=== PATIENT | male | born 1990 | race American Indian/Alaskan Native ===

== ENCOUNTER 2016-08-07 07:39 | Emergency (ER) | payer OTHER ==
[2016-08-07] MEDS ORDERED: NACL 0.9% 500 ML 500 ML IV ONE (07:53)
[2016-08-07 08:27] LABS: Hemoglobin 12.8 gm/dl (11.8-15.2); Mean Corpuscular HGB Conc 32 % (32-34); Mean Corpuscular Hemoglobin 28 pg (28-32); Mean Corpuscular Volume 88 fl (84-94); Platelet Count 224 K/mm3 (140-440); Red Blood Count 4.58 M/mm3 (3.65-5.03); Red Cell Distribution Width 14.5 % (13.2-15.2); White Blood Count 5.3 K/mm3 (4.5-11.0)
[2016-08-07 08:37] LABS: INR 1.14 (0.87-1.13)
[2016-08-07 08:47] LABS: Alanine Aminotransferase 6 units/L (7-56); Albumin 3.4 g/dL (3.9-5); Albumin/Globulin Ratio 0.5 %; Alkaline Phosphatase 72 units/L (35-129); Anion Gap 13 mmol/L; Blood Urea Nitrogen 10 mg/dL (9-20); Calcium 8.9 mg/dL (8.4-10.2); Carbon Dioxide 28 mmol/L (22-30); Chloride 96.7 mmol/L (98-107); Glucose 75 mg/dL (75-100); Potassium 3.4 mmol/L (3.6-5.0); Sodium 134 mmol/L (137-145); Total Protein 9.8 g/dL (6.3-8.2)
[2016-08-07] MEDS ORDERED: NACL 0.9% 1000 ML 1,000 ML IV ONE (08:54)
--- NOTE | 2016-08-07 09:38 | Cat Scan Report ---
CT NECK WITH CONTRAST: HISTORY: Neck swelling. TECHNIQUE: Helical CT following IV contrast. Sagittal and coronal reformatted images. FINDINGS: There is moderate submental soft tissue swelling. No defined abscess, foreign body or soft tissue gas is appreciated. The parotid and submandibular glands are normal. The carotid sheaths are intact. There is no evidence of adenopathy within the neck. The thyroid gland is normal. The glottic structures are normal. The airway is patent. Strap musculature is unremarkable. Hyoid bone and thyroid cartilage are intact. Mild chronic left maxillary sinusitis is noted. IMPRESSION: Submental soft tissue swelling most consistent with cellulitis. No abscess identified.
[2016-08-07] MEDS ORDERED: VANCOMYCIN/NS 1 GM/250 ML 1 GM/250 ML BAG IV ONE (10:00)
[2016-08-07 10:01] LABS: Basophils % (Manual) 0 % (0.0-1.8); Blastocytes % (Manual) 0 %
[2016-08-07 10:02] LABS: Diff Status Complete; RBC Morphology Normal
--- NOTE | 2016-08-07 10:46 | Emergency Department Report ---
- General Chief complaint: Neck Pain/Injury Stated complaint: SWOLLEN NECK Time Seen by Provider: 08/07/16 08:32 Source: patient Mode of arrival: Ambulatory Limitations: No Limitations - History of Present Illness MD complaint: rash (erythema under chin concern for ingrown hair) -: Gradual, days(s) Location: face Severity: mild Severity scale (0 -10): 1 Quality: aching Consistency: constant Improves with: none Worsens with: none Context: other (concerned ingrown hair after shaving) Associated symptoms: denies other symptoms - Related Data Previous Rx's Medication Instructions Recorded Last Taken Type Ciprofloxacin HCl [Ciprofloxacin 500 mg PO BID #14 tablet 02/11/15 Unknown Rx TAB] Famotidine [Pepcid] 20 mg PO DAILY #30 tablet 02/11/15 Unknown Rx Hyoscyamine Subl [Levsin Sl 0.125 0.125 mg SL Q6HR PRN #20 tab 02/11/15 Unknown Rx TAB] Metoclopramide [Reglan] 10 mg PO TID PRN #20 tab 02/11/15 Unknown Rx Sulfamethoxazole/Trimethoprim 1 each PO BID #14 tablet 08/07/16 Unknown Rx [Bactrim DS TAB] Allergies Allergy/AdvReac Type Severity Reaction Status Date / Time No Known Allergies Allergy Unverified 02/11/15 02:05 Abscess Boil HPI - HPI Chief Complaint: Neck Pain/Injury Stated Complaint: SWOLLEN NECK Time Seen by Provider: 08/07/16 08:32 Home Medications: Previous Rx's Medication Instructions Recorded Last Taken Type Ciprofloxacin HCl [Ciprofloxacin 500 mg PO BID #14 tablet 02/11/15 Unknown Rx TAB] Famotidine [Pepcid] 20 mg PO DAILY #30 tablet 02/11/15 Unknown Rx Hyoscyamine Subl [Levsin Sl 0.125 0.125 mg SL Q6HR PRN #20 tab 02/11/15 Unknown Rx TAB] Metoclopramide [Reglan] 10 mg PO TID PRN #20 tab 02/11/15 Unknown Rx Sulfamethoxazole/Trimethoprim 1 each PO BID #14 tablet 08/07/16 Unknown Rx [Bactrim DS TAB] Allergies/Adverse Reactions: Allergies Allergy/AdvReac Type Severity Reaction Status Date / Time No Known Allergies Allergy Unverified 02/11/15 02:05 ED Review of Systems ROS: Stated complaint: SWOLLEN NECK Other details as noted in HPI Other: GENERAL: No weight change, fatigue, weakness, fever, chills, or night sweats SKIN: No changes in skin or hair, no itching, no jaundice, skin rash under chin HEAD: No trauma, headache, or visual changes EYES: No blurriness, tearing, itching, acute visual loss, conjunctival discoloration, or scleral icterus EARS: No hearing loss, tinnitus, vertigo, or earache NOSE: No rhinorrhea, stuffiness, sneezing, itching, or epistaxis MOUTH: No bleeding gums, hoarseness, sore throat, or swelling CARDIAC: No new murmur, chest pain, palpitations, dyspnea on exertion, orthopnea , PND, or edema RESPIRATORY: No shortness of breath, wheeze, cough, sputum production, hemoptysis, pneumonia, asthma, bronchitis, or emphysema GI: No change in appetite, nausea, vomiting, dysphagia, change in bowel frequency, diarrhea, constipation, bleeding, hematemesis, melena, hematochezia, or abdominal pain URINARY: No frequency, urgency, polyuria, dysuria, hematuria, or incontinence MUSCULOSKELETAL: No muscle weakness, joint stiffness, decrease in range of motion, redness, swelling, tenderness NEUROLOGIC: No loss of sensation, numbness, tingling, tremors, weakness, paralysis, seizures HEMATOLOGIC: No anemia, easy bruising, bleeding, petechiae, or purpura. Reports last CD4 count approximately 550 ENDOCRINE: No hot or cold intolerance, sweating, polyuria, polydipsia or, polyphagia no thyroid problems PSYCHIATRIC: No change in mood, no anxiety, no depression ED Past Medical Hx - Past Medical History Previous Medical History?: Yes Hx HIV: Yes Additional medical history: sinus infecton - Surgical History Past Surgical History?: No - Social History Smoking Status: Current Every Day Smoker Substance Use Type: Prescribed - Medications Home Medications: Home Medications Medication Instructions Recorded Confirmed Last Taken Type Ciprofloxacin HCl [Ciprofloxacin 500 mg PO BID #14 tablet 02/11/15 Unknown Rx TAB] Famotidine [Pepcid] 20 mg PO DAILY #30 tablet 02/11/15 Unknown Rx Hyoscyamine Subl [Levsin Sl 0.125 0.125 mg SL Q6HR PRN #20 tab 02/11/15 Unknown Rx TAB] Metoclopramide [Reglan] 10 mg PO TID PRN #20 tab 02/11/15 Unknown Rx Sulfamethoxazole/Trimethoprim 1 each PO BID #14 tablet 08/07/16 Unknown Rx [Bactrim DS TAB] ED Physical Exam - General Limitations: No Limitations - Other Other exam information: GENERAL: Patient in no acute distress HEAD: Normocephalic, atraumatic EYES: PERRLA, EOM intact, no scleral icterus, no papilledema, no conjunctival hemorrhage, visual rod and acuity wnl, NOSE: No tenderness, discharge, sinus tenderness MOUTH: No erythema, bleeding, exudate HEART: Regular rate and rhythm, no murmur, S1-S2 are auscultated, pulses are symmetric LUNGS: No wheezing, rales, rhonchi, bilateral breath sounds ABDOMEN: Normal bowel sounds, no tenderness, no rebound, no guarding, no masses , no CVA tenderness MUSCULOSKELETAL: Normal joint range of motion, no redness, no swelling, no tenderness NEUROLOGIC: GCS 15, Alert and Oriented x3, Cranial nerves intact, normal sensation, normal strength, normal gait, no cerebellar deficit PSYCHIATRIC: No homicidal or suicidal ideation, no anxiety, no depression, no hallucinations SKIN: Skin is warm and dry, mild erythema blanching under chin, no fluctuating fluid collection ED Course Vital Signs 08/07/16 08/07/16 08/07/16 07:44 08:43 08:50 Temperature 98.3 F Pulse Rate 111 H Respiratory 20 Rate Blood Pressure 122/84 126/90 O2 Sat by Pulse 100 94 99 Oximetry 08/07/16 08/07/16 08/07/16 09:00 09:48 09:50 Temperature Pulse Rate Respiratory Rate Blood Pressure 123/92 123/92 123/92 O2 Sat by Pulse 97 100 100 Oximetry 08/07/16 08/07/16 08/07/16 10:00 10:10 10:20 Temperature Pulse Rate Respiratory Rate Blood Pressure 116/86 116/86 118/83 O2 Sat by Pulse 97 100 99 Oximetry 08/07/16 08/07/16 08/07/16 10:30 10:40 10:52 Temperature Pulse Rate Respiratory Rate Blood Pressure 127/85 127/85 137/89 O2 Sat by Pulse 100 97 100 Oximetry 08/07/16 08/07/16 08/07/16 11:00 11:10 11:20 Temperature Pulse Rate Respiratory Rate Blood Pressure 119/84 119/84 124/77 O2 Sat by Pulse 100 97 100 Oximetry 08/07/16 11:32 Temperature Pulse Rate Respiratory 16 Rate Blood Pressure O2 Sat by Pulse 98 Oximetry ED Medical Decision Making - Lab Data Result diagrams: 08/07/16 08:03 08/07/16 08:03 - Radiology Data Radiology results: report reviewed - Medical Decision Making Patient comfortable. Updated with results. Plan discharge with outpatient follow-up. Patient agrees with plan and will return if symptoms worsen. Critical care attestation.: If time is entered above; I have spent that time in minutes in the direct care of this critically ill patient, excluding procedure time. ED Disposition Clinical Impression: Cellulitis Qualifiers: Site of cellulitis: neck Qualified Code(s): L03.221 - Cellulitis of neck Disposition: - TO HOME OR SELFCARE Is pt being admited?: No Condition: Stable Instructions: Cellulitis (ED) Prescriptions: Sulfamethoxazole/Trimethoprim [Bactrim DS TAB] 1 each PO BID #14 tablet Referrals: PRIMARY CARE, [Primary Care Provider] - 2-3 Days Time of Disposition: 10:45
[2016-08-07 11:37] VITALS: BP 124/77
== END 2016-08-07 13:03 | disposition home or self-care (01) ==
LOC: ED 07:39
DX: L03.221 Cellulitis of neck (principal); F17.200 Nicotine dependence, unspecified, uncomplicated
CPT/HCPCS: 36415; 70491; 80053; 82140; 82805; 85007; 85025; 85610; 87040; 96361; 96365; 96366; 99284; J3370; J7030; Q9967